=== PATIENT | male | born 1960 | race Caucasian/White ===

== ENCOUNTER 2018-12-22 10:46 | Emergency (ER) | payer OTHER ==
[~2018-12-22] VITALS: Ht 177.8 cm; Wt 86.4 kg
[2018-12-22 10:54] VITALS: Ht 177.8 cm; Wt 86.4 kg
[2018-12-22] MEDS ORDERED: SYNTHROID150 MCG PO (10:56)
[2018-12-22] MEDS ORDERED: HYDROCHLOROTH12.5 M1 PO (10:57)
[2018-12-22 12:50] VITALS: BP 151/87
== END 2018-12-22 12:50 | disposition home or self-care (01) ==
LOC: D.ER 10:46
DX: S01.01XA Laceration without foreign body of scalp, initial encounter (principal); W26.8XXA Contact with other sharp object(s), not elsewhere classified, initial encounter; Y93.89 Activity, other specified; Y92.89 Other specified places as the place of occurrence of the external cause